=== PATIENT | male | born 1975 | race African-American/Black ===

== ENCOUNTER 2017-05-11 12:42 | Inpatient (IN) | payer OTHER ==
[~2017-05-11] VITALS: Ht 172.7 cm; Wt 89.8 kg
[2017-05-11] MEDS ORDERED: LEVE1000 PO ×2 (12:49→18:03)
[2017-05-11] MEDS ORDERED: PHENYTOIN SODIUM 1,000 MG in SODIUM CHLORIDE 0.9% 100 ML IV ONE (13:15)
[2017-05-11 13:30] LABS: BASOPHILS % 1.1 % (0.0-2.0); EOSINOPHILS % 1.2 % (0.0-5.0); HEMATOCRIT. 46.8 % (42.0-52.0); HEMOGLOBIN. 15.6 g/dL (14.0-18.0); LYMPHOCYTES % 8.1 % (20.0-50.0); MEAN CORPUSCULAR HEMOGLOBIN 35.1 pg (28.0-32.0); MEAN CORPUSCULAR VOLUME 105.3 fL (80.0-94.0); MEAN PLATELET VOLUME 9.1 fl (7.4-10.4); MONOCYTES % 6.9 % (2.0-8.0); NEUTROPHILS % 82.7 % (40.0-76.0); PLATELET 200 x1000/uL (130-400); RED BLOOD CELL COUNT 4.44 mill/uL (4.7-6.1)
[2017-05-11] MEDS ORDERED: LORAZEPAM 2MG/ML CPJ IV ONE (13:30)
[2017-05-11 13:42] LABS: CHLORIDE 105 mEq/L (98-107); ETHANOL BLOOD < 10 mg/dL
[2017-05-11 16:30] LABS: CLARITY URINE CLEAR (CLEAR); COLOR URINE ORANGE (YELLOW); KETONES URINE 1+ (NEGATIVE); LEUKOCYTE ESTERASE URINE NEGATIVE (NEGATIVE); NITRITE URINE NEGATIVE (NEGATIVE); OCCULT BLOOD URINE NEGATIVE (NEGATIVE); PROTEIN URINE NEGATIVE (NEGATIVE); SPECIFIC GRAVITY URINE 1.021 (1.005-1.030)
[2017-05-11 16:43] LABS: *AMPHETAMINES SCREEN URINE NEGATIVE (NEGATIVE); *BARBITURATES SCREEN URINE NEGATIVE (NEGATIVE); *BENZODIAZEPINES SCREEN URINE NEGATIVE (NEGATIVE); *COCAINE SCREEN URINE NEGATIVE (NEGATIVE); CANNABINOID URINE SCREEN PRESUMTIVE POSITIVE (NEGATIVE); METHADONE URINE SCREEN NEGATIVE (NEGATIVE); OPIATES URINE SCREEN NEGATIVE (NEGATIVE); PHENCYCLIDINE URINE SCREEN NEGATIVE (NEGATIVE)
[2017-05-11 18:00] VITALS: BP 131/85
[2017-05-11] MEDS ORDERED: MAGNESIUM/ALUMINUM HYDROXIDE/SIMETHICONE 30ML UDC PO PRN (18:30)
[2017-05-11] MEDS ORDERED: TRAMADOL 50MG TABLET PO PRN (18:30)
[2017-05-11] MEDS ORDERED: ACETAMINOPHEN 325MG TABLET PO PRN (18:30)
[2017-05-11] MEDS ORDERED: ONDANSETRON HCL 4MG/2ML VIAL IV PRN (18:30)
[2017-05-11] MEDS ORDERED: NITROGLYCERIN 0.4MG TABLET SL SL PRN (18:30)
[2017-05-11] MEDS ORDERED: DIPHENHYDRAMINE 50MG/ML VIAL IV PRN (18:30)
[2017-05-11] MEDS ORDERED: NA PHOS,M-B/NA PHOS,DI-BA ENEMA 118ML PR PRN (18:30)
[2017-05-11] MEDS ORDERED: KETOROLAC 30MG/ML VIAL IV PRN (18:30)
[2017-05-11] MEDS ORDERED: DOCUSATE SODIUM 100MG CAPSULE PO PRN (18:30)
[2017-05-11] MEDS ORDERED: GUAIFENESIN 200MG/10ML SUGAR FREE UDC PO PRN (18:30)
[2017-05-11] MEDS ORDERED: ZOLPIDEM TARTRATE 5MG TABLET PO PRN (18:30)
[2017-05-11] MEDS ORDERED: LORAZEPAM 2MG/ML CPJ IV PRN (18:30)
[2017-05-11] MEDS ORDERED: IPRATROPIUM/ALBUTEROL 0.5-3(2.5)MG/3ML NEB INH PRN (18:30)
[2017-05-11] MEDS ORDERED: CLONIDINE 0.1MG TABLET PO PRN (18:30)
[2017-05-11] MEDS ORDERED: LORAZEPAM 0.5MG TABLET PO PRN (18:45)
[2017-05-11 19:30] VITALS: BP 136/90
[2017-05-11 20:00] VITALS: BP 136/90
[2017-05-11] MEDS ORDERED: ENOXAPARIN 40MG/0.4ML SYR SUBCUT SCH (20:00)
[2017-05-11] MEDS: METOPROLOL TARTRATE 25MG TABLET PO SCH (20:01)
[2017-05-11] MEDS: LEVETIRACETAM 500MG TABLET PO SCH (20:01)
[2017-05-11] MEDS ORDERED: PHENYTOIN SODIUM EXTENDED 100MG CAPSULE PO SCH (22:00)
[2017-05-11] MEDS: PHENYTOIN SODIUM EXTENDED 100MG CAPSULE PO SCH (22:52)
[2017-05-12] VITALS: BP 131/90
[2017-05-12 04:00] VITALS: BP 130/89
[2017-05-12] MEDS: PHENYTOIN SODIUM EXTENDED 100MG CAPSULE PO SCH (05:13)
[2017-05-12 08:00] VITALS: BP 125/77
[2017-05-12] MEDS ORDERED: PANTOPRAZOLE SODIUM 40 MG/VIAL IV SCH (09:00)
[2017-05-12] MEDS: LEVETIRACETAM 500MG TABLET PO SCH (09:21)
[2017-05-12] MEDS: METOPROLOL TARTRATE 25MG TABLET PO SCH (09:22)
[2017-05-12 12:36] VITALS: BP 126/89
[2017-05-12 12:44] VITALS: BP 126/89
== END 2017-05-12 13:00 | disposition home or self-care (01) | DRG 101 ==
LOC: ER 13:00 → 5WST 15:03 → ENRESERV 16:59
PROVIDERS: ADMIT Internal Medicine; ATTEND Internal Medicine
DX: G40.109 Localization-related (focal) (partial) symptomatic epilepsy and epileptic syndromes with simple partial seizures, not intractable, without status epilepticus (principal); F12.10 Cannabis abuse, uncomplicated; R74.0 Nonspecific elevation of levels of transaminase and lactic acid dehydrogenase [LDH]; Z79.899 Other long term (current) drug therapy; Z72.89 Other problems related to lifestyle
CPT/HCPCS: 36415; 70450; 80053; 80305; 81003; 82962; 83036; 85025; 93970; 96365; 96375; 99285; C9113; G0482; J1165; J1650; J2060; J7040; J7050